=== PATIENT | female | born 1985 | race African-American/Black ===

== ENCOUNTER 2018-07-19 01:16 | Emergency (ER) | payer OTHER ==
[~2018-07-19] VITALS: Ht 165.1 cm; Wt 104.9 kg
[2018-07-19 01:21] VITALS: Ht 165.1 cm; Wt 104.9 kg
[2018-07-19 02:55] LABS: BASOPHIL % 0.3 % (0-2); PLATELET COUNT 314 x10^3mcL (130-400); RED CELL DISTRIBUTION WIDTH 13.2 % (11.5-14.5)
[2018-07-19 02:56] LABS: CALCIUM 9.1 mg/dL (8.5-10.1); CARBON DIOXIDE 24.4 mmol/L (21-32); CHLORIDE SERUM 104 mmol/L (98-107); CREATININE SERUM 0.9 mg/dL (0.6-1.0); GFR1 > 60 mL/min; GLUCOSE SERUM 96 mg/dL (74-106); POTASSIUM SERUM 3.9 mmol/L (3.5-5.1); SODIUM SERUM 141 mmol/L (136-145)
[2018-07-19 03:00] LABS: ALBUMIN 3.5 g/dL (3.4-5.0); ALKALINE PHOSPHATASE 53 U/L (46-116); ALT/SGPT 29 U/L (14-59); AST/SGOT 23 U/L (15-37); BILIRUBIN TOTAL 0.36 mg/dL (0.20-1.00)
[2018-07-19 03:01] LABS: TOTAL PROTEIN, SERUM 8.9 g/dL (6.4-8.2)
[2018-07-19 05:56] VITALS: BP 114/77
== END 2018-07-19 05:56 | disposition home or self-care (01) ==
LOC: ED 01:16
PROVIDERS: Emergency Medicine
DX: R07.89 Other chest pain (principal); R11.10 Vomiting, unspecified; Z98.84 Bariatric surgery status
CPT/HCPCS: 85378; J7030; Q0092; Q9967